=== PATIENT | female | born 1945 | race Caucasian/White ===

== ENCOUNTER → 2024-02-20 13:59 | Outpatient (REF) | payer OTHER, SELFPAY | LOC: WDC 13:59 | PROVIDERS: ATTENDING PHYSICIAN Family Medicine Geriatric Medicine; FAMILY PHYSICIAN Family Medicine | DX: Z12.39 Encounter for other screening for malignant neoplasm of breast (principal); Z85.3 Personal history of malignant neoplasm of breast; D05.12 Intraductal carcinoma in situ of left breast | CPT/HCPCS: 77063; 77067 ==

== ENCOUNTER → 2024-03-06 13:44 | Outpatient (REF) | payer OTHER, SELFPAY | LOC: RCS 13:44 | PROVIDERS: ATTENDING PHYSICIAN Student in an Organized Health Care Education/Training Program; FAMILY PHYSICIAN Family Medicine | DX: I42.8 Other cardiomyopathies (principal); R60.0 Localized edema | CPT/HCPCS: 93306 ==

== ENCOUNTER 2024-07-09 02:38 | Inpatient (IN) | payer OTHER, SELFPAY ==
[2024-07-09] VITALS (28 sets, daily range): BP systolic 100–152; BP diastolic 56–98; BMI 33.3; BMI 33.1; BMI 32.0
[2024-07-09 00:18] LABS: Venous Blood Gas B.E. -3.9 mmol/L (-4 to +4); Venous Blood Gas HCO3 22.2 mmol/L (22-27); Venous Blood Gas O2 Sat % 84.3 %; Venous Blood Gas pCO2 43 mmHg (35-48); Venous Blood Gas pH 7.32 (7.32-7.43); Venous Blood Gas pO2 51 mmHg (30-50)
--- NOTE | 2024-07-09 00:18 | ED.GENMED ---
History of Present Illness
General
Chief Complaint: Breathing Problem
Source: patient and spouse
Exam Limitations: none
Time Seen by Provider: 07/08/24 23:56
Nursing documentation reviewed up to this point in time: agreed with
History of Present Illness
History of Present Illness:
The patient is a 78-year-old female with a past medical history of anxiety, A-fib on Eliquis, hypertension and hyperlipidemia who comes in with complaints of shortness of breath. On arrival, patient is extremely anxious and diaphoretic. She is
flushed and complaining of not being able to breathe. She is thrashing around and screaming. Patient's reports that patient does have a history of mild dementia and anxiety but he admits that she is acting unlike herself. He reports
symptoms started 1 hour prior to arrival. He reports she was previously doing well and has had no recent fever or cough. Patient denies chest pain. reports that patient is frequently in atrial fibrillation. Patient is a poor historian as
she keeps screaming and is hard to get on the stretcher to evaluate
Past History
Past History
ED Past Medical History: Arrthythmia and HTN
ED Past Surgical History: Gynecological (Hysterectomy) and Other (Surgery for rectal prolapse, surgery for rectocele and routine colonoscopy)
Social History
Tobacco: Non-smoker
Alcohol: None (Wine one glass)
Drug: None
Personal:
Living: with family
Employment: Employed
Family History
Family History: Hypertension
Review of Systems
Review of Systems
Allergies reviewed?: Yes
Other source history: other (Spouse)
All Other Systems: Not applicable (Limited due to patient's poor cooperation)
Respiratory: Reports trouble breathing
Phy Exam
Physical Exam
Physical Exam:
Physical Exam
General: Patient is diaphoretic, flushed, screaming
Neck: supple. No stridor. Airway widely patent
Heart: Tachycardic, irregular
Lungs: Patient hyperventilating
Abdomen: Soft
Neuro: alert and nonfocal
Skin: no rash
Psychiatric: Very anxious, agitated
Extremities: Nontender
Scores
Heart Failure Risk
Heart Failure Risk Score: Not Applicable
Course
Orders/Labs/Results
Orders:
Orders
07/08/24 23:54
ECG [Electrocardiogram (*1)] Urgent
Reason for Study: Shortness of Breath
07/08/24 23:55
EKG- Treatment ONCE
07/09/24 00:07
CR Chest Portable - 1 View Urgent
Comment:
Reason For Exam: SOB
Reason Study Needs to be Portable: Unable to Transport
07/09/24 00:10
Complete Blood Count/With Diff Urgent
NT-proBNP Urgent
Troponin I Urgent
Venous Blood Gas Urgent
%Oxygen/Room Air: 3L
07/09/24 00:20
Diltiazem HCl [Cardizem] 10 mg IV NOW STA
07/09/24 00:29
COVID-19 Antigen Urgent
Source: Nasal Swab
Comprehensive Metabolic Panel Urgent
Comment: REDRAW
Influenza A+B Rapid Molecular Urgent
CELENA Source: Nasal Swab
Specimen Description:
07/09/24 00:30
Diltiazem 125 mg/125 ml Nss [Cardizem] 125 mg in 125 ml IV PER PROTOCOL
Initial dose in mg/hr, then titrate:: 5
Titrate to keep:: Heart rate 80-100 bpm
Titrate by mg/hr:: 5 mg/hr
Frequency of titrations (minutes):: 15
Maximum dose in mg/hr:: 15
07/09/24 02:17
Admit/Transfer Patient As Directed
Co-Sign Provider:
Level of Care: Inpatient admission
Assign to:: IVU
Physician / Group: Esau
Diagnosis: A-Fib with RVR
Reason for Hospitalization: A-Fib with RVR
Expected length of stay greater than two midnights?: Yes
ELOS- Estimated Length of Stay in days: 2
I certify the patient meets the requirements for IP care: Yes
PRN Pain Medication Management As Directed
May give lesser potent ordered pain med per pt: Yes
preference::
Protocol:: Medication orders for pain may be administered in a
manner that supports deferring to patient preference
when the pt is:
- Requesting an ordered lesser potent pain medication.
Least to most potent pain medications are defined
as: acetaminophen < NSAID < tramadol < opioids
(morphine, oxycodone, hydromorphone).
- Requesting a lesser dose of the same medication IF
ORDERED.
- Requesting a less intrusive route of administration
if both routes are prescribed by the provider (PO <
IV).
07/09/24 02:19
Code Status As Directed
Resuscitation Status: Full Code
Abnormal Lab Results
07/09/24 07/09/24
00:10 00:29
WBC 23.6 H 10^3/uL
(4.8-10.8)
MCH 31.9 H pg
(27.0-31.0)
MCHC 32.6 L g/dL
(33.0-37.0)
MPV 12.3 H fL
(7.4-10.4)
Abs Immat Gran (auto) 0.1 H 10^3/uL
(0-0.05)
Absolute Neuts (auto) 20.9 H 10^3/uL
(1.4-6.5)
Absolute Lymphs (auto) 1.0 L 10^3/uL
(1.2-3.4)
Absolute Monos (auto) 1.3 H 10^3/uL
(0.1-0.6)
Immature Gran % 0.6 H %
(0-0.5)
Neutrophils % 88.3 H %
(42.2-75.2)
Lymphocytes % 4.3 L %
(20.5-51.1)
VBG pO2 51 H mmHg
(30-50)
Sodium 134 L mmol/L
(135-145)
Carbon Dioxide 19 L mmol/L
(22-30)
BUN 19 H mg/dl
(7-17)
Glucose 244 H mg/dl
(70-99)
Total Bilirubin 2.1 H mg/dl
(0.2-1.3)
07/09/24 00:10
07/09/24 00:29
Vital Signs
Initial and Last Documented VS:
Initial Vital Signs
Temp Pulse Resp Pulse Ox
97.4 F 144 36 92
07/08/24 23:46 07/08/24 23:46 07/08/24 23:46 07/08/24 23:46
Last Documented Vital Signs
Temp Pulse Resp BP Pulse Ox
97.4 F 81 25 100/60 94
07/08/24 23:46 07/09/24 02:00 07/09/24 01:45 07/09/24 02:00 07/09/24 02:00
MDM/Problems Addressed
Differential Diagnosis Includes:
A-fib with RVR, CHF, pneumonia, acute coronary syndrome, PE
MDM/Problems Addressed:
Patient presents with extreme agitation and complaints of acute shortness of breath
Chronic conditions affecting care: Arrhythmia
Acute Exacerbation and/or Progression of Chronic Illness:
Patient likely has acute exacerbation of A-fib
Acute Exacerbation and/or Progression of Chronic Illness: Arrhythmia
*Radiology
Radiology exam reviewed: preliminary read by ED provider (Chest x-ray reviewed by me. No acute disease)
*Pulse Oximetry
Patient hypoxic: no
*EKG
Interpreted by ED Provider?: Yes
Interpretation: abnormal
Comparison EKG: changes noted
Rate: normal
Rhythm: a-fib
[place]: normal axis
Interval: normal interval
QRS Pattern: normal QRS
Ischemia: non-specific ST changes
*Parts Runner Interpretation
Rate: tachycardiac
Interpretation: abnormal
Rhythm: a-fib
*Critical Care Note
Total Time (30-74mins, 75-104mins- exclusive of procedures): 45 minutes
comment:
45 minutes critical care given the patient including frequent reassessments of her mental status, heart rate, blood pressure, reviewing prior medical records, reviewing her lab work and her chest x-ray
Data Reviewed
Review of Other/Old Records Reveals: Testing (Cardiac echo in 2021 shows EF of 45 to 50%)
Source: spouse
Patient Management
Social determinants of health affecting care: Living situation and Strong social support
Discussion with other providers: Hospitalist
Update Note
Update Note:
Patient is on a Cardizem drip and heart rate in the 80s. Patient is much more comfortable and calm.
ED Attending Note
-
Portions of this chart may have been created with voice recognition software.� Occasional wrong word or��sound alike� substitutions may have occurred due to the inherent limitations of voice recognition software.
Discharge Plan
Departure
Patient Disposition: Admit
Date of Disposition: 07/09/24
Time of Disposition: 01:55
Admit to: Telemetry
Presentation/result/management discussed w/ accepting MD/DO: Hospitalist
Patient with high blood pressure during this ER visit?: Yes
Condition: Good
Covid-19: Not Applicable
Discharge Problem:
Atrial fibrillation with rapid ventricular response
Interventions
Interventions:
*Risk Screen - Suicide Last Done: 07/08/24 23:46
*General Assessment Last Done: 07/09/24 00:07
*Neglect/Abuse Screening Last Done: 07/08/24 23:46
ED- Fall Risk Assessment Last Done: 07/09/24 00:06
[2024-07-09 00:20] LABS: Venous Blood Gas O2 Therapy 3L NC
[2024-07-09] MEDS: CARDIZEM 10 MG IV (00:30)
[2024-07-09] MEDS: CARDIZEM 125 IV (00:32)
[2024-07-09 00:36] LABS: Hematocrit 44.2 % (37.0-47.0); Hemoglobin 14.4 g/dL (12.0-16.0); Mean Corp Hgb Conc. 32.6 g/dL (33.0-37.0); Mean Corpuscular Hgb 31.9 pg (27.0-31.0); Mean Corpuscular Volume 97.8 fL (81.0-99.0); Mean Platelet Volume 12.3 fL (7.4-10.4); Platelet Count 238 10^3/uL (130-400); Red Blood Cell Count 4.52 10^6/uL (4.20-5.40); Red Cell Dist. Width 13.9 % (11.5-14.5); White Blood Cell Count 23.6 10^3/uL (4.8-10.8)
[2024-07-09 00:51] LABS: % Basophils 0.4 % (0-2); % Eosinophils 0.9 % (0-6); % Immature Granulocytes 0.6 % (0-0.5); % Lymphocytes 4.3 % (20.5-51.1); % Monocytes 5.5 % (1.7-9.3); % Neutrophils 88.3 % (42.2-75.2); Absolute Basophils 0.1 10^3/uL (0-0.2); Absolute Eosinophils 0.2 10^3/uL (0-0.7); Absolute Immature Granulocytes 0.1 10^3/uL (0-0.05); Absolute Monocytes 1.3 10^3/uL (0.1-0.6); Absolute Neutrophils 20.9 10^3/uL (1.4-6.5); Nucleated Red Blood Cells % 0 %
[2024-07-09 01:05] LABS: NT-proBNP 2090 pg/ml; Troponin I 0.018 ng/ml
[2024-07-09 01:05] LABS: ALT (SGPT) 24 U/L (0-35); AST (SGOT) 26 U/L (14-36); Albumin 4.9 g/dl (3.5-5.0); Alkaline Phosphatase 109 U/L (38-126); Blood Urea Nitrogen 19 mg/dl (7-17); Calcium 9.4 mg/dl (8.4-10.2); Carbon Dioxide 19 mmol/L (22-30); Chloride 99 mmol/L (98-107); Estimated Creatinine Clearance 58 ml/min; Glucose 244 mg/dl (70-99); Potassium 4.2 mmol/L (3.5-5.1); Sodium 134 mmol/L (135-145); Total Bilirubin 2.1 mg/dl (0.2-1.3); Total Protein 7.8 g/dl (6.3-8.2); eGFR > 60.00
[2024-07-09 01:06] LABS: COVID-19 Antigen Negative (Negative)
--- NOTE | 2024-07-09 02:21 | HPS.HSE ---
Family Physician
-
Family Physician: Ian Wyman
Chief Complaint
-
SOB
History of Present Illness
Patient is a 78y F with PMH significant for hypertension, PA-Fib and anxiety who presents to ED complaining of severe SOB. Patient states that she was feeling well until sudden onset of SOB this evening around 10PM. Patient states that she
could not get comfortable, she could catch her breath and she had a feeling of impending doom. 911 was called and patient was brought to the ED for further evaluation and treatment. She was noted to be in A-Fib with rapid ventricular response.
Patient was in distress, quite anxious and restless and cardioversion was not attempted. Patient was started on IV diltiazem and currently feels much improved after rate control.
Patient denies any associated symptoms of chest pain, palpitations, diaphoresis, N/V, etc.
She has known PA-Fib, but denies any prior episodes similar to this.
No recent illness / complaints. No recent changes to her medications.
Medical History
Past Medical History
Past Medical History: Reports Other
Additional Past Medical History:
Paroxysmal Atrial Fibrillation
Valvular Heart Disease
Hypertension
Breast Cancer s/p Lumpectomy and XRT
Anxiety
Uterine Prolapse
Past Surgical History: Reports Other
Additional Past Surgical History:
Rectocele Repair
Hysterectomy
Left Lumpectomy
Bilateral Breast Reduction
Social History
Tobacco: Non-smoker
Alcohol: None
Drug: None
Family History
Family History: Not pertinent
Allergies / Home Medications
Allergies reflects when Allergies were last updated in [facility].
Home Medications with original date entered in [facility]
Allergy/Medication List:
Allergies
Allergy/AdvReac Type Severity Reaction Status Date / Time
cashew nut Allergy stomach Verified 07/08/24 23:53
upset
codeine Allergy hives and Verified 07/08/24 23:53
difficulty
breathing
donepezil [From Aricept] Allergy diarrhea Verified 07/08/24 23:53
peanut Allergy stomach Verified 07/08/24 23:53
upset
Penicillins Allergy Rash Verified 07/08/24 23:53
Kfidmjb-LPR-EaO Reductase Allergy pain in Verified 07/08/24 23:53
Inhibitor legs and
swelling
Sulfa (Sulfonamide Allergy rash and Verified 07/08/24 23:53
Antibiotics) difficulty
breathing
Home Medications
multivitamin with folic acid 400 mcg tablet (Tab-A-Aide) 1 tab PO QPM 01/13/11
lorazepam 0.5 mg tablet 0.5 mg PO PRN PRN Anxiety 01/23/13
metoprolol succinate 50 mg tablet,extended release 24 hr 100 mg PO BID 01/08/17
apixaban 5 mg tablet (Eliquis) 5 mg PO BID 05/25/22
furosemide 80 mg tablet (Lasix) 80 mg PO Q48H 05/25/22
paroxetine HCl 20 mg tablet (Paxil) 40 mg PO DAILY 05/25/22
galantamine 4 mg tablet 4 mg PO BID 03/15/23
spironolactone 25 mg tablet 25 mg PO DAILY 03/15/23
Review of Systems
-
History Source: Patient
A 12 point ROS was completed and negative except as noted: Yes
Constitutional: Denies Fever or Chills
EENT: Denies Sore Throat
Respiratory: Reports Trouble Breathing; Denies Cough
Cardiac: Denies Chest Pain, Diaphoresis, Palpitations or Syncope
Abdomen/GI: Denies Abdominal Pain, Nausea, Vomiting or Diarrhea
: Denies Dysuria or Frequency
Musculoskeletal: Denies Joint Pain or Edema
Neurological: Denies Dizzy or Headache
Psych: Reports Anxiety
Physical Exam
Vital Signs
Vital Signs
Temp Pulse Resp BP Pulse Ox
97.4 F 81 25 100/60 94
07/08/24 23:46 07/09/24 02:00 07/09/24 01:45 07/09/24 02:00 07/09/24 02:00
Physical Exam
General: Other (78y F currently in no distress.)
HEENT: Moist mucous membranes and PERRLA
Respiratory: Other (Bibasilar rales about 1/3 up. No wheezes / rhonchi.)
Cardiac: S1/S2, Irregular Rhythm and Murmur (II/ MATT)
GI: Soft, Non Tender, Non Distended and Normal Bowel Sounds
Musculoskeletal: No Clubbing, No Cyanosis, No Edema and Other (Post-surgical changes at the L ankle)
Neuro: AO x 3
Psych: Anxious
Laboratory Results
-
07/09/24 00:10
07/09/24 00:29
Laboratory Results
Total Bilirubin 2.1 mg/dl (0.2-1.3) H 07/09/24 00:29
AST 26 U/L (14-36) 07/09/24 00:29
ALT 24 U/L (0-35) 07/09/24 00:29
Alkaline Phosphatase 109 U/L (38-126) 07/09/24 00:29
Troponin I 0.018 ng/ml 07/09/24 00:10
Impression/Plan
-
A/P: Patient is a 78y F with PMH significant for A-Fib, HTN and anxiety who presents to ED complaining of SOB.
Atrial Fibrillation with Rapid Ventricular Response
- Admit for further evaluation and treatment.
- Symptoms significantly improved with adequate rate control.
- Continue IV diltiazem and titrate as needed.
- Continue usual metoprolol dosing.
- Continue Eliquis for stroke risk reduction.
- Cardiology evaluation for additional recommendations.
- Follow for any new / recurrent symptoms.
Acute on Chronic HFmrEF
Valvular Heart Disease
- Suspect some degree of decompensated HF - likely on the basis of tachyarrhythmia.
- IV Lasix daily for now and follow weights, I/Os, etc.
- Echo done 03/2024 with LVEF = 45-50% and MR, AR, TR.
- Continue current medications including spironolactone.
- Cardiology eval as noted above.
Benign Hypertension
- Stable. Continue usual medications with holding parameters.
Generalized Anxiety
- Likely a component of anxiety / panic this evening after initial onset of symptoms.
- Continue current medications including PRN lorazepam.
Leukocytosis
- Unclear etiology - ? stress response.
- No recent symptoms, exam findings, etc to suggest active infection.
- Observe off of abx.
- Follow for changes in CBC.
DVT Prophylaxis: On Eliquis
Code Status: Full
[2024-07-09 05:01] LABS: Hemoglobin 13.1 g/dL (12.0-16.0); Mean Corp Hgb Conc. 33.6 g/dL (33.0-37.0); Mean Corpuscular Hgb 32.4 pg (27.0-31.0); Mean Corpuscular Volume 96.5 fL (81.0-99.0); Mean Platelet Volume 12.4 fL (7.4-10.4); Platelet Count 204 10^3/uL (130-400); Red Blood Cell Count 4.04 10^6/uL (4.20-5.40); Red Cell Dist. Width 13.7 % (11.5-14.5); White Blood Cell Count 22.2 10^3/uL (4.8-10.8)
--- NOTE | 2024-07-09 05:11 | EDRN ---
Pts HR maintaining in the 70s on Cardizem gtt at 5ml/hr. DRIVER TRAINEE Hephz[employer] notified.
[2024-07-09 05:14] LABS: Blood Urea Nitrogen 22 mg/dl (7-17); Calcium 9.2 mg/dl (8.4-10.2); Carbon Dioxide 25 mmol/L (22-30); Chloride 102 mmol/L (98-107); Estimated Creatinine Clearance 53 ml/min; Glucose 139 mg/dl (70-99); Potassium 4.3 mmol/L (3.5-5.1); Sodium 135 mmol/L (135-145); eGFR 57.31
[2024-07-09 05:28] LABS: Troponin I 0.143 ng/ml
--- NOTE | 2024-07-09 05:31 | EDRN ---
ARTUR Carter notified of critical trop 0.143
[2024-07-09 05:57] LABS: TSH Reflex To Free T4 1.62 uIU/ml (0.47-4.68)
[2024-07-09] MEDS: TOPROL XL 100 MG PO ×2 (08:45→21:44)
[2024-07-09] MEDS: PAXIL 40 MG PO (08:46)
[2024-07-09] MEDS: ALDACTONE 12.5 MG PO (08:46)
[2024-07-09] MEDS: RAZADYNE 4 MG PO ×2 (08:47→21:44)
[2024-07-09] MEDS: ELIQUIS 5 MG PO ×2 (08:47→21:43)
--- NOTE | 2024-07-09 09:22 | CON.CAR ---
Addendum entered and electronically signed by Ha Morales MD 07/09/24 12:39:
I saw and examined the patient.
The HIGH SCHOOL COMBINATION TEACHER's note was reviewed and I agree with the note.
Comment: 78 yo female with persistent/permanent Afib on Eliquis, HTN, HFmrEF 45-50%, NICM, dementia, breast cancer (tx with surgery/XRT), hypertension, dyslipidemia, and severe anxiety, who presents to the ER with c/o acute SOB last night after
walking up the stairs to bed around 10:30p. She felt her heart racing and checked her BP that was elevated, so she came into the ER. She was noted to be in rapid Afib 130s on tele/EKG in the ER and started on IV Diltiazem with improvement of rates
and her symptoms. Currently she feels better and would like to go home. She has never had any chest pain. She is no longer sob and rates are improved. Labs are c/f an impressive leukocytosis. ECG shows afib with ns st change. on exam, mild
peripheral edema, irreg irreg rate and rhythm, lungs cta. Overall SOB likely multifactorial. Unclear if symptoms for AF with RVR with some resultant pulmonary edema. This is reportedly impromved. I think she will benefit from some diuresis. I
will update her echo to ensure no worseing of her valvedisease to explain acute SOB. Trop only mildly elevated and recent normal cath with no cp so low suspicion for ischemic etiology. Rate control is improved. Unclear etiology of leukocytosis,
will defer work up to medicine.
Will follow
Original Note:
Consultation
Consultation Request
Date/Time Consultation Requested: 07/09/24 4:15a
Date/Time Consultation Performed: 07/09/24 9:15a
Requesting Provider: Dr. Cifuentes
Performing Provider: ARTUR Esquivel for Dr. Morales
Reason for Consultation: rapid Afib
Medical History
-
Chief Complaint: sob
History of Present Illness:
Mrs. Martínez is a 78 yo female with persistent/permanent Afib on Eliquis, HTN, HFmrEF 45-50%, NICM, dementia, breast cancer (tx with surgery/XRT), hypertension, dyslipidemia, and severe anxiety, who presents to the ER with c/o acute SOB last night
after walking up the stairs to bed around 10:30p. She felt her heart racing and checked her BP that was elevated, so she came into the ER. She was noted to be in rapid Afib 130s on tele/EKG in the ER and started on IV Diltiazem with improvement of
rates and her symptoms. She is admitted to the hospitalist service and we are consulted for rapid Afib.
Past Medical History
Past Medical History: Other (as above)
Past Surgical History: Gynecological (hysterectomy)
Social History
Tobacco: Non-Smoker
Alcohol: None
Living: With Family
Family History
Family History: Reviewed & Not Pertinent
Allergies / Home Medications
Allergy/AdvReac Type Severity Reaction Status Date / Time
cashew nut Allergy stomach Verified 07/08/24 23:53
upset
codeine Allergy hives and Verified 07/08/24 23:53
difficulty
breathing
donepezil [From Aricept] Allergy diarrhea Verified 07/08/24 23:53
peanut Allergy stomach Verified 07/08/24 23:53
upset
Penicillins Allergy Rash Verified 07/08/24 23:53
Tmccthp-OLY-EiN Reductase Allergy pain in Verified 07/08/24 23:53
Inhibitor legs and
swelling
Sulfa (Sulfonamide Allergy rash and Verified 07/08/24 23:53
Antibiotics) difficulty
breathing
�Medication �Instructions �Recorded �Confirmed �Type
multivitamin with folic acid 400 1 tab PO QPM 01/13/11 07/09/24 History
mcg tablet (Tab-A-Aide)
lorazepam 0.5 mg tablet 0.5 mg PO PRN PRN Anxiety 01/23/13 07/09/24 History
metoprolol succinate 50 mg 100 mg PO BID 01/08/17 07/09/24 History
tablet,extended release 24 hr
apixaban 5 mg tablet (Eliquis) 5 mg PO BID 05/25/22 07/09/24 History
furosemide 80 mg tablet (Lasix) 80 mg PO Q48H 05/25/22 07/09/24 History
paroxetine HCl 20 mg tablet (Paxil) 40 mg PO DAILY 05/25/22 07/09/24 History
galantamine 4 mg tablet 4 mg PO BID 03/15/23 07/09/24 History
spironolactone 25 mg tablet 25 mg PO DAILY 03/15/23 03/21/23 History
Review of Systems
-
History Source: Patient
All other systems: Negative unless noted
Physical Exam
Vital Signs
Temp Pulse Resp BP Pulse Ox
97.8 F 72 32 111/96 96
07/09/24 02:15 07/09/24 08:48 07/09/24 08:15 07/09/24 08:48 07/09/24 08:15
Lab Results
07/09/24 04:42
07/09/24 04:42
Troponin I 0.143 ng/ml H* D 07/09/24 04:42
Ybm-U-Qratphbdzqb Pept 2090 pg/ml 07/09/24 00:10
Physical Exam
General: Well Developed, No Apparent Distress and Comfortable
HEENT: Normocephalic, Anicteric and Moist Mucous Membranes
Respiratory: Clear and Non Labored Respirations
Cardiac: S1/S2, Irregular Rhythm and Murmur (2/6 MATT )
Breast: Deferred by me
GI: Soft, Non Tender, Non Distended and Normal Bowel Sounds
Rectal: Deferred by Provider
Genito-urinary: Clear Urine
Musculoskeletal: No Clubbing and No Cyanosis
Skin: Warm and Dry
Neuro: AO x 3
Hematologic/Lymphatic: No Lymphadenopathy
Psych: Calm
Impression / Plan
-
Afib - persistent/permanent.
- rapid rates on tele on arrival.
- rates improved with IV Diltiazem and now its off.
- Jesus [id number] VASc score 5 (age, female, HTN, CM).
NICM - EF 45-50%.
- on GDMT with Toprol, Aldactone, Lasix.
- was on lisinopril but had dizziness so stopped.
- check echo.
Nonischemic myocardial injury - acute in the setting of rapid Afib and leukocytosis.
- troponin trend 0.018, 0.143, 0.120.
- she denies any chest pain and now denies SOB at rest.
Valvular heart disease - severe TR, mod-severe MR.
- diuresis as above.
- check echo.
HTN - stable on medical therapy.
HLD - statin intolerant.
[facility] Apr 2022: no CAD, LVEDP 30 mmHg at weight of 199 lbs, severe PHTN WHO group 5, severely elevated SVR, RA 27, RV 83/27, PA 83/27, CI 1.5.
Data Reviewed
-
EKG: Tracing Personally Visualized and interpreted (Afib with RVR 131 bpm)
Medical Tests (Nuc Med, Echo etc): Report Reviewed by me (echo 02/2024: EF 45-50%, moderate to severe MR, mild to moderate AR, severe TR PASP 58 mmHg. no changes from echo 04/2022.) and Other ([facility] Apr 2022: no CAD, LVEDP 30 mmHg at weight of
199 lbs, severe PHTN WHO group 5, severely elevated SVR, RA 27, RV 83/27, PA 83/27, CI 1.5.)
Labs: Labs Reviewed by me
Old Records: Reviewed
--- NOTE | 2024-07-09 09:30 | EDRN ---
this RN received the pt from the previous payroll lead nurse, the pt was resting in bed in the lowest position, side rails up x2, call chacko within reach, HOB elevated, no s/s of distress, per previous nurse angela gtt has been off, the pt is
currently still in Afib in the 70's, no c/o chest pain, no c/o SOB, the pt was received on 3L NC and Sp02 was 99%, per providers orders to titrate 02 to keep Sp02 >94%, this RN titrated the pts 02 off and Sp02 is currently 96%, the pt was able to
take AM PO medications with no difficulty with water, the pt refused IV lasix and stated, 'Please tell the doctor that i don't want it i don't take it every day and i truly don't need it thank you', this RN offered the pt a menu to order breakfast
and the pt refused stating, 'I am not hungry just leave the menu at the bedside', this RN left the pts menu at the bedside along with the room phone in case she wanted to order breakfast, the pt denies needing anything at this time, the pt was able
to ambulate independently with no difficulty to the bathroom to void and ambulated back to the stretcher with no issues, will continue to monitor the pt closely
--- NOTE | 2024-07-09 10:07 | EDRN ---
cardiology currently at the pts bedside speaking with the pt
--- NOTE | 2024-07-09 10:18 | EDRN ---
Troponin drawn and sent, the pt is tolerating being off 02, Sp02 94-96%, no c/o SOB
--- NOTE | 2024-07-09 10:31 | EDRN ---
admission documentation performed by this RN
--- NOTE | 2024-07-09 10:53 | EDRN ---
troponin trending down
--- NOTE | 2024-07-09 11:15 | EDRN ---
attending currently at the pts bedside
--- NOTE | 2024-07-09 11:35 | EDRN ---
float tender currently at the pts bedside
[2024-07-09 12:10] LABS: Hematocrit 38.3 % (37.0-47.0); Hemoglobin 12.5 g/dL (12.0-16.0); Mean Corp Hgb Conc. 32.6 g/dL (33.0-37.0); Mean Corpuscular Hgb 32.1 pg (27.0-31.0); Mean Corpuscular Volume 98.2 fL (81.0-99.0); Mean Platelet Volume 12.2 fL (7.4-10.4); Platelet Count 199 10^3/uL (130-400); Red Cell Dist. Width 13.9 % (11.5-14.5); White Blood Cell Count 16.4 10^3/uL (4.8-10.8)
--- NOTE | 2024-07-09 12:35 | EDRN ---
echocardiogram being performed
--- NOTE | 2024-07-09 14:25 | W.PN.UPDATE ---
Update Note
Progress Note Update
HR improved
continue iv lasix
sob could be combination of afib and chf
f/u echo
monitor wbc - suspect 2/2 to acute stress; monitor fever curve and wbc; no obvious infection at this time
[2024-07-09] MEDS: LASIX 40 MG IV (14:33)
--- NOTE | 2024-07-09 14:44 | EDRN ---
per Dr. Jane a dose of IV lasix was ordered, this RN spoke to the pt and the pts regarding her IV lasix and the pt agreed to take it, the pt is still off of the cardizem gtt, the pt is currently still in Afib in the 70's, the pt is also
still tolerating being off of 02 and RA Sp02 is 96%, no c/o chest pain, no c/o SOB, the pt ate 50% of her lunch tray, will continue to monitor the pt closely
--- NOTE | 2024-07-09 17:37 | EDRN ---
patient down graded to Tele
--- NOTE | 2024-07-09 21:25 | PTCARENOTE ---
Pt transferred from ED. Pt AAox3, able to make needs known, VSS. Pt forgetful, bed alarm applied. Pt oriented to unit, call chacko within reach. Will continue with current plan.
[2024-07-10 03:38] VITALS: BP 133/66
[2024-07-10 05:55] VITALS: BMI 32.0
[2024-07-10 07:37] VITALS: BP 138/84
[2024-07-10] MEDS: PAXIL 40 MG PO (07:41)
[2024-07-10] MEDS: ALDACTONE 12.5 MG PO (07:41)
[2024-07-10] MEDS: ELIQUIS 5 MG PO (07:41)
[2024-07-10] MEDS: TOPROL XL 100 MG PO (07:41)
[2024-07-10] MEDS: RAZADYNE 4 MG PO (07:42)
--- NOTE | 2024-07-10 08:53 | W.PN.CD ---
Today's Communication / Plan
-
she can resume lasix 40mg PO on odd days upon d/c, and can increase to daily for weight gain of 2-3lbs in one day, or 5 lbs in one week
Impression / Plan
-
Acute HFmEF
-echo 07/09/24: EF 45-50%, moderate MR, severe TR, PASP 68
-improved s/p IV lasix
-she can resume lasix 40mg PO on odd days upon d/c, and can increase to daily for weight gain of 2-3lbs in one day, or 5 lbs in one week
Afib - persistent/permanent.
- rapid rates on tele on arrival.
- rates improved with IV Diltiazem and now stopped
-cont Toprol XL 100mg bid
- Eliquis [id number] VASc score 5 (age, female, HTN, CM).
NICM - EF 45-50%.
- on GDMT with Toprol, Aldactone
- was on lisinopril but had dizziness so stopped.
Nonischemic myocardial injury - acute in the setting of rapid Afib and leukocytosis.
- troponin trend 0.018, 0.143, 0.120.
- she denies any chest pain and now denies SOB at rest.
Valvular heart disease - severe TR, mod-severe MR. stable.
- diuresis as above.
HTN - stable on medical therapy.
HLD - statin intolerant.
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
Physical Exam
Vital Signs/Labs
Vital Signs
Temp Pulse Resp BP Pulse Ox
98.7 F 85 20 138/84 96
07/10/24 07:37 07/10/24 07:41 07/10/24 07:37 07/10/24 07:41 07/10/24 07:37
07/09/24 07/10/24 07/11/24
06:59 06:59 06:59
Actual Weight 93.6 kg 89.896 kg
07/09/24
00:10
Kec-Z-Plvrjstffbh Pept 2089
LAB Results
07/09/24 07/09/24 07/09/24
00:10 04:42 10:17
Troponin I 0.018 0.143 H* D 0.120 H*
07/09/24
16:17
Troponin I Cancelled
Physical Exam
Constitutional: No acute distress and Comfortable
EENT: Moist mucous membranes
Cardiovascular: JVD pressure is normal, Rhythm/rate is irregular, Pedal edema present (trace) and Systolic murmur present
Respiratory: Respiratory effort normal and Wheeze Present
Neuro/Psych: AO x 3
Data Reviewed
-
Date of Service: July 10, 2024
EKG: Other (Tele: A fib 70s)
Labs: Labs Reviewed by me
[2024-07-10 10:00] LABS: Hematocrit 40.3 % (37.0-47.0); Hemoglobin 13.5 g/dL (12.0-16.0); Mean Corp Hgb Conc. 33.5 g/dL (33.0-37.0); Mean Corpuscular Hgb 32.5 pg (27.0-31.0); Mean Corpuscular Volume 97.1 fL (81.0-99.0); Mean Platelet Volume 12.7 fL (7.4-10.4); Platelet Count 210 10^3/uL (130-400); Red Blood Cell Count 4.15 10^6/uL (4.20-5.40); Red Cell Dist. Width 13.9 % (11.5-14.5); White Blood Cell Count 11.9 10^3/uL (4.8-10.8)
[2024-07-10 10:28] LABS: ALT (SGPT) 24 U/L (0-35); AST (SGOT) 28 U/L (14-36); Albumin 4.3 g/dl (3.5-5.0); Alkaline Phosphatase 94 U/L (38-126); Blood Urea Nitrogen 24 mg/dl (7-17); Calcium 9.1 mg/dl (8.4-10.2); Carbon Dioxide 29 mmol/L (22-30); Chloride 96 mmol/L (98-107); Estimated Creatinine Clearance 57 ml/min; Glucose 84 mg/dl (70-99); Magnesium 2.2 mg/dl (1.6-2.3); Sodium 136 mmol/L (135-145); Total Protein 7.2 g/dl (6.3-8.2); eGFR > 60.00
[2024-07-10 11:03] VITALS: BP 144/79
--- NOTE | 2024-07-10 12:20 | W.PN.HOSP.TC ---
Today's Communication/Plan
-
Resume home regimen Lasix dosing, can increase frequency to daily for weight gain of 2-3lbs in one day, or 5 lbs in one week
F/u cbc and bmp outpt
f/u pcp, cards outpt
Assessment / Plan
Assessment / Plan
Constitutional: No acute distress and Comfortable
EENT: Moist mucous membranes
Cardiovascular: JVD pressure is normal, Rhythm/rate is irregular, Pedal edema present (trace) and Systolic murmur present
Respiratory: Respiratory effort normal and Wheeze Present
Neuro/Psych: AO x 3
A/P: Patient is a 78y F with PMH significant for A-Fib, HTN and anxiety who presents to ED complaining of SOB.
Atrial Fibrillation with Rapid Ventricular Response
- short course of dilt ggt
-cont home regimen
-f/u cards outpt
-eliquis
Acute on Chronic HFmrEF
Valvular Heart Disease
- Echo done 03/2024 with LVEF = 45-50% and MR, AR, TR.
- s/p IV lasix
- resume home dosing; can increase frequency to daily for weight gain of 2-3lbs in one day, or 5 lbs in one week
�Follow-up BMP outpatient
Leukocytosis
� Most likely due to acute stress
� Resolved on its own
� Follow-up CBC outpatient
Benign Hypertension
- Stable. Continue usual medications with holding parameters.
Generalized Anxiety
- Likely a component of anxiety / panic this evening after initial onset of symptoms.
- Continue current medications including PRN lorazepam.
DVT Prophylaxis: On Eliquis
Code Status: Full
More than 30 minutes spent in discharge including
Final examination of the patient
Summarizing hospital stay
Instructions for continuing care to all relevant caregivers
Preparation of discharge records, prescriptions, and referral forms
Total time spent (38 in minutes):
Anticipated Discharge: Today
Subjective/Interval History
-
Date of Service: July 10, 2024
No acute events, feels better
Objective Data
-
Labs:
Laboratory Results
07/10/24
09:24
WBC 11.9 H
Hgb 13.5
Hct 40.3
Plt Count 210
Sodium 136
Potassium 4.0
Chloride 96 L
Carbon Dioxide 29
BUN 24 H
Creatinine 0.9
Glucose 84
Calcium 9.1
Total Bilirubin 2.0 H
AST 28
ALT 24
Alkaline Phosphatase 94
Vital Signs:
Vital Signs
Temp Pulse Resp BP Pulse Ox
97.9 F 87 20 144/79 97
07/10/24 11:03 07/10/24 11:03 07/10/24 11:03 07/10/24 11:03 07/10/24 11:03
Review of Systems
-
History Source: Patient
All other systems: Not reviewed unless documented
Data Reviewed
-
Diagnostic Radiology: Report Reviewed by me
Labs: Labs Reviewed by me
--- NOTE | 2024-07-10 12:24 | W.DS.TRANS ---
Addendum entered and electronically signed by Anthony Golden MD 07/10/24 12:28:
furosemide 80 mg tablet (Lasix) 40 mg PO Q48H #0 tabs 07/10/24
Original Note:
DC Summary - [employer]
-
Discharge Instructions:
Discharge Diagnosis/Procedures Acute HFmEF
Afib - persistent/permanent
Leukocytosis
Diet Restrict fluids to 48 oz,Low Cholesterol,Low Fat
Blood Work cbc and bmp in within 3-5 days with pcp
Instructions:
Stand-Alone Forms:
Changes to Home Medications: No
Discharge Medications:
DC Medications w/original date entered in [employer]
multivitamin with folic acid 400 mcg tablet (Tab-A-Aide) 1 tab PO NOON 01/13/11
lorazepam 0.5 mg tablet 0.5 mg PO HSPRN PRN Anxiety 01/23/13
metoprolol succinate 50 mg tablet,extended release 24 hr 100 mg PO BID 01/08/17
apixaban 5 mg tablet (Eliquis) 5 mg PO BID 05/25/22
galantamine 4 mg tablet 4 mg PO BID 03/15/23
spironolactone 25 mg tablet 12.5 mg PO DAILY 03/15/23
lorazepam 0.5 mg tablet 0.25 mg PO DAILYPRN PRN anxiety 07/09/24
paroxetine HCl 40 mg tablet 40 mg PO DAILY 07/09/24
furosemide 80 mg tablet (Lasix) 80 mg PO Q48H #0 tabs 07/10/24
Home Medication Changes
na
Pending Results: No
--- NOTE | 2024-07-10 14:36 | CM ---
Pt will d/c today per hospitalist. Pt seen bedside. Initial assessment completed. Admitted for severe SOB.
Pt reports that she lives w/ spouse in a 2STH- 2 steps to enter the home.
Pt shares she has 2 canes, one in the car and other in the home. Pt states she does not use cane while in the house, only when she is out in the community. Pt shares she has grab bars and a shower chair in the bathroom for support.
Pt denies SNF/VN/PT hx. Pt shared she did engage in OP therapy in the past for arthritis.
Address, point of contact and insurance verified. Pt has mailing address listed. Physical address is [address] [place] [address], [place] [address]
PCP:
Pharmacy: [facility] for mail orders. For immediate rx needs, pt utilizes [facility] in [place]
Pt agreeable to d/c today, stating her will be transporting her
IMM reviewed, pt given copy, copy placed in chart
Plan: Home; no needs
== END 2024-07-10 14:14 | disposition home or self-care (01) | DRG 291 ==
LOC: 4 WEST ACU 02:38
PROVIDERS: ADMITTING PHYSICIAN Hospitalist; ATTENDING PHYSICIAN Internal Medicine; EMERGENCY PHYSICIAN Emergency Medicine; FAMILY PHYSICIAN Family Medicine; OTHER PHYSICIAN Internal Medicine Cardiovascular Disease
DX: I11.0 Hypertensive heart disease with heart failure (principal); I50.23 Acute on chronic systolic (congestive) heart failure; F03.A4 Unspecified dementia, mild, with anxiety; I48.21 Permanent atrial fibrillation; F41.1 Generalized anxiety disorder; I27.20 Pulmonary hypertension, unspecified; Z79.01 Long term (current) use of anticoagulants
CPT/HCPCS: 71045; 80048; 80053; 82805; 83735; 83880; 84443; 84484; 85025; 85027; 87502; 87811; 93005; 93306; 96374; 99291

== ENCOUNTER → 2025-02-25 13:42 | Outpatient (REF) | payer OTHER, SELFPAY | LOC: WDC 13:42 | PROVIDERS: ATTENDING PHYSICIAN Family Medicine Geriatric Medicine; FAMILY PHYSICIAN Family Medicine | DX: Z85.3 Personal history of malignant neoplasm of breast (principal) | CPT/HCPCS: 77063; 77067 ==

== ENCOUNTER → 2025-03-04 09:28 | Outpatient (REF) | payer OTHER, SELFPAY | LOC: WDC 09:28 | PROVIDERS: ATTENDING PHYSICIAN Family Medicine Geriatric Medicine; FAMILY PHYSICIAN Family Medicine | DX: R92.8 Other abnormal and inconclusive findings on diagnostic imaging of breast (principal) | CPT/HCPCS: 76642 ==

== ENCOUNTER → 2025-03-11 08:27 | Outpatient (REF) | payer OTHER, SELFPAY | LOC: WDC 08:27 | PROVIDERS: ATTENDING PHYSICIAN Family Medicine Geriatric Medicine; FAMILY PHYSICIAN Family Medicine | DX: N63.12 Unspecified lump in the right breast, upper inner quadrant (principal) | CPT/HCPCS: 19083; 88305; A4648 ==